=== PATIENT | female | born 1975 | race Caucasian/White ===

== ENCOUNTER 2017-03-16 19:21 | Emergency (ER) | payer BC, OTHER ==
[~2017-03-16] VITALS: Ht 160 cm; Wt 81.0 kg
[2017-03-16 19:35] VITALS: Ht 160 cm; Wt 81.0 kg
[2017-03-16] MEDS ORDERED: LIDOCAINE/MYLANTA 40 ML BTL PO STA (20:51)
[2017-03-16] MEDS ORDERED: FAMOTIDINE 20 MG TAB PO STA (20:51)
[2017-03-16 21:45] LABS: BASOPHIL # 0.1 10^3/ul (0.0-0.1); BASOPHILS % 0.4 % (0.0-2.0); EOSINOPHILS # 0.2 10^3/ul (0.0-0.5); EOSINOPHILS % 1.7 % (0.0-7.0); HEMATOCRIT 41.4 % (37.0-47.0); HEMOGLOBIN 13.8 g/dl (12.0-16.0); LYMPHOCYTES # 3.9 10^3/ul (0.8-2.9); MEAN CORPUSCULAR HEMOGLOBIN 29.8 pg (29.0-33.0); MEAN CORPUSCULAR HGB CONC 33.3 g/dl (32.0-37.0); MEAN CORPUSCULAR VOLUME 89.4 fl (82.0-101.0); MEAN PLATELET VOLUME 11.8 fl (7.4-10.4); MONOCYTE # 0.7 10^3/ul (0.3-0.9); MONOCYTES % 6.2 % (0.0-11.0); NEUTROPHIL # 6.6 10^3/ul (1.6-7.5); NEUTROPHILS % 57.4 % (39.0-77.0); PLATELET COUNT 286 10^3/UL (140-415); RED BLOOD COUNT 4.63 10^6/ul (4.20-5.40); RED CELL DISTRIBUTION WIDTH 14.4 % (11.5-14.5); WHITE BLOOD COUNT 11.4 10^3/ul (4.8-10.8)
[2017-03-16 22:04] LABS: ALBUMIN 4.5 g/dl (3.3-4.9); ALBUMIN/GLOBULIN RATIO 1.15; CALCIUM 9.5 mg/dl (8.4-10.2); CREATININE 0.61 mg/dl (0.44-1.00); POTASSIUM 3.9 mmol/L (3.5-5.1); TOTAL PROTEIN 8.4 g/dl (6.1-8.1)
--- NOTE | 2017-03-16 22:04 | RADRPT ---
PROCEDURE: US abdomen right upper quadrant CLINICAL INDICATION: Abdominal pain. TECHNIQUE: Cabrales scale and color Doppler ultrasound of the right upper quadrant of the abdomen was p erformed. COMPARISON: None available. FINDINGS: Pancreas: Visualized portions are unremarkable. Liver: Normal in size and echogenicity with no focal hepatic lesion. Hepatopedal flow in the main po rtal vein. Gallbladder: Distended with stones. Mild gallbladder wall thickening measuring 4 mm and trace perich olecystic fluid. Gallbladder polyp measuring 5 mm. Negative sonographic Harris's sign. Common bile duct: 4.4 mm in diameter. Right Kidney: 9.8 cm in length. No nephrolithiasis, hydronephrosis, or mass. There is linear echogen icity that is isoechoic to the cortex extending from the upper pole towards the renal hilum, suggest dustin of a column of Quintin. Ascites: None. IMPRESSION: 1. Distended gallbladder with stones demonstrating mild wall thickening and trace pericholecystic f luid, but a negative sonographic Harris's sign. This examination is therefore equivocal for the pres ence of acute cholecystitis. Correlate for recent pain medication administration to suggest a false negative sonographic Harris's sign. Nuclear medicine hepatobiliary scan can be performed for further evaluation. 2. Right renal findings as described, suggestive of a column of Quintin at the upper pole. No hydron ephrosis or suspicious renal mass. 3. Gallbladder polyp measuring 5 mm. RPTAT: HLBP .Peng Espino MD, MD Date Time Electronically viewed and signed by .Peng Espino MD, MD on 03/16/2017 22:04 .P/
[2017-03-16 22:19] LABS: ADD UMIC YES; UR ASCORBIC ACID NEGATIVE (NEGATIVE); UR BILIRUBIN (Dip) NEGATIVE (NEGATIVE); UR BLOOD (Dip) NEGATIVE (NEGATIVE); UR CLARITY CLEAR (CLEAR); UR COLOR COLORLESS (YELLOW); UR GLUCOSE (Dip) NEGATIVE (NEGATIVE); UR KETONES (Dip) NEGATIVE (NEGATIVE); UR LEUKOCYTE ESTERASE (Dip) TRACE Leu/ul (NEGATIVE); UR NITRITE (Dip) NEGATIVE (NEGATIVE); UR RBC 0 /HPF (0-5); UR SPECIFIC GRAVITY (Dip) 1.003 (1.003-1.030); UR TOTAL PROTEIN (Dip) NEGATIVE (NEGATIVE); UR UROBILINOGEN (Dip) NEGATIVE (NEGATIVE)
[2017-03-16] MEDS ORDERED: PIPER-TAZO 3.375 GM IV (PMX) 100 ML IVPB ONE (23:00)
[2017-03-16] MEDS ORDERED: SOD CHLORIDE 0.9% 1,000 ML IV ONE (23:00)
--- NOTE | 2017-03-16 23:59 | ERA ---
ER Documentation Chief Complaint Date/Time DATE: 03/16/17 TIME: 23:54 Chief Complaint PT reports RUQ pain that radiates to back worsens after eating HPI 42-year-old female patient with no significant past medical history presents to the ED complaining of right upper quadrant abdominal pain that radiates to her back that started earlier today. Patient states that it worsens after eating. Reports that her last meal was at 12 PM. Describes the pain as pressure-like and rates it a 6 out of 10. Denies any fever, chills, nausea, vomiting, diarrhea, constipation, dysuria, urgency, frequency, chest pain, shortness of breath. States that her last menstruation was on February 06, 2017. ROS All systems reviewed and are negative except as per history of present illness. Allergies Allergies: Coded Allergies: No Known Allergy (Unverified , 03/16/17) PMhx/Soc Medical and Surgical Hx: pt denies Medical Hx History of Surgery: Yes () Anesthesia Reaction: No Hx Neurological Disorder: No Hx Respiratory Disorders: No Hx Cardiac Disorders: No Hx Psychiatric Problems: No Hx Miscellaneous Medical Probl: No Hx Alcohol Use: No Hx Substance Use: No Hx Tobacco Use: No Smoking Status: Never smoker Physical Exam Vitals Vital Signs Date Time Temp Pulse Resp B/P Pulse Ox O2 Delivery O2 Flow Rate FiO2 03/17/17 02:42 97.9 78 16 116/80 98 Room Air 03/17/17 01:11 98.1 76 16 132/82 99 Room Air 03/16/17 19:35 99.2 62 16 134/89 99 Physical Exam Const: [id number]-jjy-[id number], well-nourished. In no acute distress. Head: Atraumatic, normocephalic Eyes: Normal Conjunctiva without injection. No purulent discharge. ENT: Normal external ear, nose. Moist oropharynx without tonsillar exudates. Non -erythematous pharynx. Uvula midline. No drooling. No trismus. Neck: No cervical midline tenderness. Full range of motion. No meningismus. No cervical lymphadenopathy. No JVD. Resp: Clear to auscultation bilaterally. No wheezing, rhonchi, rales, or crackles. No accessory muscle use. No retractions. Cardio: Regular rate and rhythm. No murmurs, rubs or gallops. Abd: Soft, right upper quadrant tenderness, non distended. Normal bowel sounds. No palpable masses. No rebound tenderness. No guarding. Negative McBurney' s point. Negative psoas sign. Negative obturator sign. Skin: No petechiae or rashes Back: No midline tenderness. No CVA tenderness. Ext: No cyanosis, or edema. Neur: Awake and alert. Normal gait. Normal coordination. Psych: Normal Mood and Affect Result Diagram: 03/16/17213403/16/172134 Results 24 hrs Laboratory Tests Test 03/16/17 21:35 03/16/17 22:00 White Blood Count 11.410^3/ul Red Blood Count 4.6310^6/ul Hemoglobin 13.8g/dl Hematocrit 41.4% Mean Corpuscular Volume 89.4fl Mean Corpuscular Hemoglobin 29.8pg Mean Corpuscular Hemoglobin Concent 33.3g/dl Red Cell Distribution Width 14.4% Platelet Count 54903^3/UL Mean Platelet Volume 11.8fl Neutrophils % 57.4% Lymphocytes % 34.0% Monocytes % 6.2% Eosinophils % 1.7% Basophils % 0.4% Nucleated Red Blood Cells % 0.0/100WBC Neutrophils # 6.610^3/ul Lymphocytes # 3.910^3/ul Monocytes # 0.710^3/ul Eosinophils # 0.210^3/ul Basophils # 0.110^3/ul Nucleated Red Blood Cells # 0.010^3/ul Sodium Level 141mmol/L Potassium Level 3.9mmol/L Chloride Level 108mmol/L Carbon Dioxide Level 24mmol/L Anion Gap 13 Blood Urea Nitrogen 10mg/dl Creatinine 0.61mg/dl Glucose Level 84mg/dl Calcium Level 9.5mg/dl Total Bilirubin 0.0mg/dl Direct Bilirubin 0.00mg/dl Indirect Bilirubin 0.0mg/dl Aspartate Amino Transf (AST/SGOT) 34IU/L Alanine Aminotransferase (ALT/SGPT) 48IU/L Alkaline Phosphatase 131IU/L Total Protein 8.4g/dl Albumin 4.5g/dl Globulin 3.90g/dl Albumin/Globulin Ratio 1.15 Lipase 113U/L Urine Color COLORLESS Urine Clarity CLEAR Urine pH 6.0 Urine Specific [place] 1.003 Urine Ketones NEGATIVEmg/dL Urine Nitrite NEGATIVEmg/dL Urine Bilirubin NEGATIVEmg/dL Urine Urobilinogen NEGATIVEmg/dL Urine Leukocyte Esterase TRACELeu/ul Urine Microscopic RBC 0/HPF Urine Microscopic WBC 2/HPF Urine Hemoglobin NEGATIVEmg/dL Urine Glucose NEGATIVEmg/dL Urine Total Protein NEGATIVEmg/dl Current Medications Medications (Trade) Dose Ordered Sig/Vishnu Route PRN Reason Start Time Stop Time Status Last Admin Dose Admin Famotidine (Pepcid) 20 mg ONCE STAT PO 03/16/17 20:51 03/16/17 20:53 DC 03/16/17 21:30 Miscellaneous Medication 40 ml 40 ml ONCE STAT PO 03/16/17 20:51 03/16/17 20:53 DC 03/16/17 21:30 Piperacillin Sod/ Tazobactam Sod 100 ml @ 200 mls/hr ONCE ONCE IVPB 03/16/17 23:00 03/16/17 23:29 DC 03/16/17 23:29 Sodium Chloride (NS) 1,000 ml @ 1,000 mls/hr Q1H ONCE IV 03/16/17 23:00 03/16/17 23:59 DC 03/16/17 23:29 Procedures/MDM 42-year-old female patient with no significant past medical history presents to the ED complaining of right upper quadrant started earlier today. Patient is afebrile and nontoxic-appearing. Patient was further worked up with CBC, CMP, lipase, UA, gallbladder ultrasound. Patient's pain and symptoms have improved after treatment with GI cocktail, 20 mg famotidine. CBC: Leukocytosis of 11.4. No e/o of systemic infection. No e/o anemia. CMP: No e/o severe acidosis, alkalosis, renal failure, diabetic ketoacidosis, liver disease Lipase within normal limits. Urine: No leukocyte esterase, no nitrites, no hematuria. Urine : Negative PROCEDURE: US abdomen right upper quadrant CLINICAL INDICATION: Abdominal pain. TECHNIQUE: Cabrales scale and color Doppler ultrasound of the right upper quadrant of the abdomen was performed. COMPARISON: None available. FINDINGS: Pancreas: Visualized portions are unremarkable. Liver: Normal in size and echogenicity with no focal hepatic lesion. Hepatopedal flow in the main portal vein. Gallbladder: Distended with stones. Mild gallbladder wall thickening measuring 4 mm and trace pericholecystic fluid. Gallbladder polyp measuring 5 mm. Negative sonographic Harris's sign. Common bile duct: 4.4 mm in diameter. Right Kidney: 9.8 cm in length. No nephrolithiasis, hydronephrosis, or mass. There is linear echogenicity that is isoechoic to the cortex extending from the upper pole towards the renal hilum, suggestive of a column of Quintin. Ascites: None. IMPRESSION: 1. Distended gallbladder with stones demonstrating mild wall thickening and trace pericholecystic fluid, but a negative sonographic Harris's sign. This examination is therefore equivocal for the presence of acute cholecystitis. Correlate for recent pain medication administration to suggest a false negative sonographic Harris's sign. Nuclear medicine hepatobiliary scan can be performed for further evaluation. 2. Right renal findings as described, suggestive of a column of Quintin at the upper pole. No hydronephrosis or suspicious renal mass. 3. Gallbladder polyp measuring 5 mm. Patient has cholecystitis noted on ultrasound. This was discussed with my supervising physician, Dr. Santillan who will speak with the surgeon contract processor for further consultation. Patient will be admitted. Patient agreed to admission questions were answered. Patient will now be under the care of Dr. Santillan for further consultation of specialists. Patient was given her first dose of Zosyn here in the ED as well as 1 L of normal saline. Low suspicion for ectopic , ovarian torsion, gastritis, GERD, peptic ulcer disease, choledocholithiasis, cholangitis, pancreatitis, appendicitis, bowel obstruction , ileus, volvulus, nephrolithiasis, pyelonephritis, hepatitis, perforated viscus , diverticulitis, strangulated/incarcerated hernia, DKA, acute abdomen, mesenteric ischemia or other emergent conditions. Patient is hemodynamically stable. Departure Diagnosis: Primary Impression: Cholecystitis Condition: Stable DEBBIE MELENDEZ PA-C Mar 16, 2017 23:59
--- NOTE | 2017-03-17 02:04 | QN ---
Documentation Comment Chief complaint: Abdominal pain History of present illness: The patient is a 42-year-old female, who was initially seen by the PA in the ED 2, presenting to the ER because of intermittent abdominal pain that began today, localize at the right upper quadrant, denies any aggravating or relieving factor, denies nausea, vomiting, dysuria, diarrhea. She does not smoke nor drink Past medical/surgical history: None Const: No acute distress. Head: Atraumatic. Eyes: Normal Conjunctiva. ENT: Normal External Ears, Nose and Mouth. Neck: Full range of motion. No meningismus. Resp: Clear to auscultation bilaterally. Cardio: Regular rate and rhythm. Abd: Soft, non distended, normal bowel sounds, Mild epigastric, right upper quadrant discomfort, no RLQ, rigidity, rebound, CVA tenderness Skin: No petechiae or rashes. Back: No midline or flank tenderness. Ext: No cyanosis, or edema. Neur: Awake and alert. No focal deficit Psych: Normal Mood and Affect. Diagnostic study: [place] [id number] Radiology Main Line: [phone] DIAGNOSTIC IMAGING REPORT Patient: CHRISTIE GONZALES : 1975 Age: 42 Sex: F MR #: [id number] [facility] #: [id number] DOS: 03/16/172050 Ordering MD: DEBBIE MELENDEZ PA-C [facility] Room/Bed: PROCEDURE: US abdomen right upper quadrant CLINICAL INDICATION: Abdominal pain. TECHNIQUE: Cabrales scale and color Doppler ultrasound of the right upper quadrant of the abdomen was performed. COMPARISON: None available. FINDINGS: Pancreas: Visualized portions are unremarkable. Liver: Normal in size and echogenicity with no focal hepatic lesion. Hepatopedal flow in the main portal vein. Gallbladder: Distended with stones. Mild gallbladder wall thickening measuring 4 mm and trace pericholecystic fluid. Gallbladder polyp measuring 5 mm. Negative sonographic Harris's sign. Common bile duct: 4.4 mm in diameter. Right Kidney: 9.8 cm in length. No nephrolithiasis, hydronephrosis, or mass. There is linear echogenicity that is isoechoic to the cortex extending from the upper pole towards the renal hilum, suggestive of a column of Quintin. Ascites: None. IMPRESSION: 1. Distended gallbladder with stones demonstrating mild wall thickening and trace pericholecystic fluid, but a negative sonographic Harris's sign. This examination is therefore equivocal for the presence of acute cholecystitis. Correlate for recent pain medication administration to suggest a false negative sonographic Harris's sign. Nuclear medicine hepatobiliary scan can be performed for further evaluation. 2. Right renal findings as described, suggestive of a column of Quintin at the upper pole. No hydronephrosis or suspicious renal mass. 3. Gallbladder polyp measuring 5 mm. RPTAT: HLBP .Peng Espino MD, Date Time Electronically viewed and signed by .Peng Espino MD, MD on 03/16/2017 22:04 .P/ CC: DEBBIE MELENDEZ PA-C MEDICAL MAKING DECISION: The patient is a 42-year-old female, presenting with acute symptomatic cholelithiasis, concerning for acute cholecystitis. She was treated with 1 L normal saline, Zosyn IV with good response. The differential diagnoses considered include but are not limited to cholelithiasis, cholecystitis, cystitis, pancreatitis, hepatitis, gastritis, peptic ulcer disease, gastric ulcer, appendicitis, diverticulitis, cholangitis, choledocholithiasis, partial small bowel obstruction. Consultation: I discussed the patient with the community health general surgeon, Dr Fermin who recommended admission. Diagnostic impression: Acute symptomatic cholelithiasis Disposition: I discussed the patient with the on-call physician for her IPA, Dr Vázquez who accepted the patient to [facility]. She will be transferred via ambulance The patient's blood pressure was elevated (>120/80) but appears stable without evidence of hypertension emergency or urgency. The patient was counseled about the risks of hypertension and urged to pursue outpatient monitoring and therapy within a week with their primary care physician. DON KEATING MD Mar 17, 2017 02:04
[2017-03-17 02:42] VITALS: BP 116/80; PULSE 78; RESP 16; TEMP 97.9
== END 2017-03-17 03:14 | disposition short-term general hospital (02) ==
LOC: FTE 19:21
DX: K80.20 Calculus of gallbladder without cholecystitis without obstruction (principal)
CPT/HCPCS: 36415; 76705; 80053; 81001; 83690; 85025; 96374; J2543; J7030; Z7502; Z7610

== ENCOUNTER 2018-01-25 11:41 | Emergency (ER) | END 2018-01-25 15:16 | disposition home or self-care (01) ==

== ENCOUNTER 2018-02-26 14:46 | Emergency (ER) | END 2018-02-26 19:31 | disposition home or self-care (01) ==

== ENCOUNTER 2018-04-30 05:59 | Day surgery (SDC) | END 2018-04-30 13:16 | disposition home or self-care (01) ==